=== PATIENT | male | born 1970 | race Caucasian/White ===

== ENCOUNTER 2020-12-01 09:44 | Emergency (ER) | payer BC, OTHER ==
[2020-12-01 09:50] VITALS: BMI 26.5
[2020-12-01] MEDS ORDERED: ASPIRIN 81 MG CHEWABLE TABLETS PO ONE (10:18)
[2020-12-01] MEDS ORDERED: ASPIRIN 81 MG CHEWABLE TABLETS ONE (10:28)
[2020-12-01] MEDS ORDERED: ACETAMINOPHEN 325 MG TABLET (FP) PO ONE (10:36)
[2020-12-01 10:37] LABS: EOS % 4.1 % (0-4.5); HEMATOCRIT 45.3 % (35.4-49); HEMOGLOBIN 15.5 GM/dL (11.7-16.9); LYMPH % 26.7 % (8-40); MCH 31.5 pg (25.7-33.7); MCHC 34.3 g/dl (32.0-35.9); MEAN CELL VOLUME 91.8 fl (80-96); MEAN PLT VOLUME 9.7 fl (7.5-11.1); MONO % 7.4 % (3.8-10.2); NEUT % 60.8 % (42.8-82.8); PLATELET COUNT 192 10^3/uL (134-434); RBC 4.93 M/mm3 (4.00-5.60); RDW 13.4 % (11.9-15.9); WHITE BLOOD COUNT 5.3 K/mm3 (4.0-10.0)
[2020-12-01] MEDS ORDERED: ACETAMINOPHEN 325 MG TABLET (FP) ONE (10:49)
[2020-12-01 10:55] LABS: CHLORIDE 108 mmol/L (98-107); SODIUM 137 mmol/L (136-145)
[2020-12-01 10:59] LABS: ALBUMIN 3.1 g/dl (3.4-5.0); CALCIUM 8.8 mg/dL (8.5-10.1); GLUCOSE,RANDOM 90 mg/dL (74-106)
[2020-12-01 11:00] LABS: BLOOD UREA NITROGEN 13.2 mg/dL (7-18); CO2 29 mmol/L (21-32)
[2020-12-01 11:01] LABS: CREATININE 1.3 mg/dL (0.55-1.3); SGOT/AST 63 U/L (15-37)
[2020-12-01 11:02] LABS: BILIRUBIN,TOTAL 0.7 mg/dL (0.2-1)
[2020-12-01 11:04] LABS: ALK PHOS 113 U/L (45-117); TOT PROT 7.6 g/dl (6.4-8.2)
[2020-12-01 11:24] LABS: ANION GAP 0 MMOL/L (8-16); SGPT/ALT 46 U/L (13-61)
[2020-12-01 15:59] VITALS: BP 121/79; PULSE 60; TEMP 98
[2020-12-01] MEDS ORDERED: ATORVASTATIN CA 20 MG TABLET (FP) PO SCH (22:00)
[2020-12-02] MEDS ORDERED: ASPIRIN COATED 81 MG TABLET.EC PO SCH (10:00)
[2020-12-02] MEDS ORDERED: ENOXAPARIN NA (PORCINE) 40 MG/0.4 ML DISP.SYRIN SQ SCH (10:00)
== END 2020-12-01 16:07 | disposition home or self-care (01) | DRG 313 ==
LOC: JER 09:44 → JERBED 12:44 → UNDOADMIN 12:44 → UNDODISIN 12:44
DX: R07.89 Other chest pain (principal); E78.5 Hyperlipidemia, unspecified
CPT/HCPCS: 36415; 71046-TC-FY; 80053; 82550; 82553; 83036; 84484; 85025; 93005; 93010; 99285-25; C9803; U0003; U0005